=== PATIENT | female | born 1940 | race African-American/Black ===

== ENCOUNTER 2017-12-16 09:50 | Emergency (ER) | payer OTHER ==
[~2017-12-16] VITALS: Ht 167.6 cm; Wt 91.0 kg
[~2017-12-16 09:50] MED LIST: CYCL5TAB PO; PROT40TA PO; TRAM50 PO
[2017-12-16 09:53] VITALS: BP 114/97; PULSE 83; RESP 16; TEMP 98.8; O2SAT 99
[2017-12-16] MEDS ORDERED: ROBA500T PO (10:38)
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
[2017-12-16] MEDS ORDERED: TRAM50 PO (12:48)
== END 2017-12-16 12:52 | disposition home or self-care (01) ==
LOC: NEPK 09:50
DX: S39.012A Strain of muscle, fascia and tendon of lower back, initial encounter (principal); M19.90 Unspecified osteoarthritis, unspecified site; K21.9 Gastro-esophageal reflux disease without esophagitis; I10 Essential (primary) hypertension; V43.52XA Car driver injured in collision with other type car in traffic accident, initial encounter; Z87.19 Personal history of other diseases of the digestive system
CPT/HCPCS: 72110; 99283

== ENCOUNTER 2018-03-06 11:30 | Emergency (ER) | payer MEDICARE, OTHER ==
[~2018-03-06] VITALS: Ht 167.6 cm; Wt 97.5 kg
[~2018-03-06 11:30] MED LIST changes: -CYCL5TAB PO; -PROT40TA PO; +ROBA500T PO
[2018-03-06 11:38] VITALS: BP 138/62; PULSE 75; RESP 16; TEMP 97.8; O2SAT 98
[2018-03-06] MEDS ORDERED: GABA300C5 PO (13:57)
[2018-03-06 14:00] VITALS: BP 146/94; PULSE 62; RESP 18; O2SAT 98
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
== END 2018-03-06 15:30 | disposition home or self-care (01) ==
LOC: NEPD 11:30
DX: G89.29 Other chronic pain (principal); M25.512 Pain in left shoulder; M25.511 Pain in right shoulder; M25.562 Pain in left knee; M25.561 Pain in right knee
CPT/HCPCS: 99281